=== PATIENT | male | born 1980 | race Caucasian/White ===

== ENCOUNTER 2016-04-23 15:10 | Emergency (ER) | payer MEDICAID ==
[~2016-04-23] VITALS: Ht 177.8 cm; Wt 86.4 kg
[2016-04-23 15:12] VITALS: TEMP 97.8
[2016-04-23] MEDS ORDERED: ROXICODONE 55 MG/TAB PO (16:07)
[2016-04-23] MEDS ORDERED: CATAPRES-TTS 10.1 M1 TD (16:08)
[2016-04-23] MEDS ORDERED: DAZIDOX10 MG PO (16:08)
[2016-04-23] MEDS ORDERED: CATAPRES 0.1MG0.1 MG PO (16:09)
[2016-04-23 16:13] LABS: BASO # 0.1 (0.0-0.2); BASO % 0.9 % (0.0-2.0); EOS # 0.3 (0.0-0.7); EOS % 3.3 % (0-4.0); GRAN # 4.1 (1.4-6.5); HEMATOCRIT 44.9 % (42.0-52.0); LYMPH # 2.5 (1.2-3.4); LYMPH % 32.5 % (20.0-51.0); MEAN CELL VOLUME 84 fl (80.0-100.0); MEAN CORPUSCULAR HEMOGLOBIN 30 pg (27.0-31.0); MEAN CORPUSCULAR HGB CONC 36 g/dl (33.0-37.0); MEAN PLATELET VOLUME 9.2 fl (7.4-10.4); MONO # 0.7 (0.1-0.6); PLATELET COUNT 255 K/mm3 (130-400); RED BLOOD COUNT 5.36 M/mm3 (4.20-5.60); WHITE BLOOD COUNT 7.6 K/mm3 (4.8-10.8)
[2016-04-23 16:23] LABS: ADJUSTED CALCIUM 8.9 mg/dL (8.4-10.2); ALBUMIN 4.7 gm/dL (3.5-5.0); BILIRUBIN,TOTAL 1.4 mg/dL (0.0-1.0); CALCIUM 9.5 mg/dL (8.4-10.2); CREATININE, serum 0.86 mg/dL (0.66-1.25); POTASSIUM 3.8 mmol/L (3.4-5.0)
[2016-04-23 17:11] LABS: PH 6 (5-8); URINE APPEARANCE Clear; URINE BILIRUBIN Negative (NEGATIVE); URINE COLOR Yellow; URINE GLUCOSE Negative (NEGATIVE); URINE KETONE Negative (NEGATIVE); URINE UROBILINOGEN Negative (NEGATIVE)
[2016-04-23 17:12] LABS: URINE BLOOD Negative (NEGATIVE)
[2016-04-23 17:19] LABS: SQUAMOUS EPITHELIAL 0-2 /hpf; URINE RBC None Seen /hpf; URINE WBC None Seen /hpf
[2016-04-23 17:44] VITALS: BP 139/99; PULSE 94
== END 2016-04-23 17:47 | disposition home or self-care (01) ==
LOC: COL.ER 15:10
PROVIDERS: Family Medicine
DX: M54.89 Other dorsalgia (principal); I10 Essential (primary) hypertension
CPT/HCPCS: J2405; J7030

== ENCOUNTER → 2017-09-08 | Outpatient (CLI) | payer MEDICAID ==
[~2017-09-08] MED LIST: CATAPRES 0.1MG0.1 MG PO; CATAPRES-TTS 10.1 M1 TD; DAZIDOX10 MG PO; ROXICODONE 55 MG/TAB PO
== END ==
LOC: COL.RAD 11:07
DX: M47.817 Spondylosis without myelopathy or radiculopathy, lumbosacral region (principal); M51.37 Other intervertebral disc degeneration, lumbosacral region; M99.73 Connective tissue and disc stenosis of intervertebral foramina of lumbar region

== ENCOUNTER 2017-09-22 14:37 | Emergency (ER) | payer MEDICAID ==
[~2017-09-22] VITALS: Ht 177.8 cm; Wt 90.9 kg
[2017-09-22 14:43] VITALS: TEMP 98.6
[2017-09-22 15:45] LABS: BASO # 0.1 (0.0-0.2); BASO % 0.7 % (0.0-2.0); EOS # 0.3 (0.0-0.7); EOS % 2.9 % (0-4.0); GRAN # 6.3 (1.4-6.5); GRAN % 65.2 % (42.2-75.2); HEMOGLOBIN 16.9 g/dl (13.5-18.0); LYMPH % 20.9 % (20.0-51.0); MEAN CELL VOLUME 82 fl (80.0-100.0); MEAN CORPUSCULAR HEMOGLOBIN 30 pg (27.0-31.0); MEAN CORPUSCULAR HGB CONC 37 g/dl (33.0-37.0); MEAN PLATELET VOLUME 9.3 fl (7.4-10.4); MONO % 9.9 % (1.7-9.3); PLATELET COUNT 254 K/mm3 (130-400); RED BLOOD COUNT 5.59 M/mm3 (4.20-5.60)
[2017-09-22 15:58] LABS: ALANINE AMINOTRANSFERASE 92 U/L (21-72); ALBUMIN 4.6 gm/dL (3.5-5.0); ALKALINE PHOSPHATASE 104 U/L (50-136); ANION GAP 9 mmol/L (7-16); AST,SGOT 53 U/L (15-37); BILIRUBIN,TOTAL 0.9 mg/dL (0.0-1.0); BLOOD UREA NITROGEN 13 mg/dL (9-20); CALCIUM 10.1 mg/dL (8.4-10.2); CARBON DIOXIDE 29 mmol/L (22-30); CHLORIDE 100 mmol/L (98-107); CREATININE, serum 1.08 mg/dL (0.66-1.25); GLUCOSE 80 mg/dL (74-106); POTASSIUM 4.5 mmol/L (3.4-5.0); SODIUM 137 mmol/L (137-145); TOTAL PROTEIN 8.7 gm/dL (6.4-8.2)
[2017-09-22 16:17] LABS: TROPONIN-I < 0.012 ng/mL (0.000-0.034)
[2017-09-22] MEDS ORDERED: PROAIR HFA0.09 MG/AC IH (17:42)
[2017-09-22] MEDS ORDERED: ZITHROMAX Z PA250 MG PO (17:42)
[2017-09-22 17:49] VITALS: BP 130/90; PULSE 124
== END 2017-09-22 18:08 | disposition home or self-care (01) ==
LOC: COL.ER 14:37
PROVIDERS: Emergency Medicine
DX: J45.909 Unspecified asthma, uncomplicated (principal); J20.9 Acute bronchitis, unspecified; I10 Essential (primary) hypertension; I12.9 Hypertensive chronic kidney disease with stage 1 through stage 4 chronic kidney disease, or unspecified chronic kidney disease; N18.9 Chronic kidney disease, unspecified
CPT/HCPCS: J7030

== ENCOUNTER 2017-10-18 18:30 | Emergency (ER) | payer MEDICAID ==
[~2017-10-18] VITALS: Ht 177.8 cm; Wt 93.2 kg
[~2017-10-18 18:30] MED LIST changes: +PROAIR HFA0.09 MG/AC IH; +ZITHROMAX Z PA250 MG PO
[2017-10-18 18:46] VITALS: BP 172/111; TEMP 97.9
[2017-10-18 19:23] LABS: BASO # 0.1 (0.0-0.2); BASO % 0.8 % (0.0-2.0); EOS # 0.5 (0.0-0.7); EOS % 5.9 % (0-4.0); GRAN # 4.3 (1.4-6.5); GRAN % 50.4 % (42.2-75.2); HEMATOCRIT 44.8 % (42.0-52.0); LYMPH # 2.6 (1.2-3.4); LYMPH % 30.7 % (20.0-51.0); MEAN CELL VOLUME 85 fl (80.0-100.0); MEAN CORPUSCULAR HEMOGLOBIN 31 pg (27.0-31.0); MEAN CORPUSCULAR HGB CONC 36 g/dl (33.0-37.0); MEAN PLATELET VOLUME 9.3 fl (7.4-10.4); MONO % 11.7 % (1.7-9.3); PLATELET COUNT 256 K/mm3 (130-400); RED BLOOD COUNT 5.25 M/mm3 (4.20-5.60); REDCELL DISTRIBUTION WIDTH-CV 12.5 % (11.5-14.5)
[2017-10-18 19:28] LABS: PROTHROMBIN TIME 10.8 SECONDS (9.7-12.8)
[2017-10-18 19:32] LABS: ALANINE AMINOTRANSFERASE 110 U/L (21-72); ALBUMIN 4.4 gm/dL (3.5-5.0); ALKALINE PHOSPHATASE 98 U/L (50-136); ANION GAP 13 mmol/L (7-16); AST,SGOT 65 U/L (15-37); BILIRUBIN,TOTAL 0.7 mg/dL (0.0-1.0); BLOOD UREA NITROGEN 13 mg/dL (9-20); CALCIUM 8.9 mg/dL (8.4-10.2); CARBON DIOXIDE 26 mmol/L (22-30); CHLORIDE 101 mmol/L (98-107); CREATININE, serum 1.03 mg/dL (0.66-1.25); GLUCOSE 125 mg/dL (74-106); POTASSIUM 3.9 mmol/L (3.4-5.0); SODIUM 139 mmol/L (137-145); TOTAL PROTEIN 7.6 gm/dL (6.4-8.2)
[2017-10-18 19:34] LABS: D-DIMER < 200.00 ng/mLDDu (200-230)
[2017-10-18 19:46] LABS: TROPONIN-I < 0.012 ng/mL (0.000-0.034)
[2017-10-18] MEDS ORDERED: PROAIR HFA0.09 MG/AC IH (23:20)
[2017-10-18] MEDS ORDERED: PREDNISONE20 MG PO (23:20)
[2017-10-18] MEDS ORDERED: ZITHROMAX500 M2 PO (23:20)
[2017-10-18 23:53] VITALS: PULSE 120
== END 2017-10-18 23:55 | disposition home or self-care (01) ==
LOC: COL.ER 18:30
PROVIDERS: Emergency Medicine
DX: J45.909 Unspecified asthma, uncomplicated (principal); I10 Essential (primary) hypertension; G89.29 Other chronic pain; Z77.22 Contact with and (suspected) exposure to environmental tobacco smoke (acute) (chronic); Z79.891 Long term (current) use of opiate analgesic
CPT/HCPCS: J2930; J3105; J3475; J7030

== ENCOUNTER → 2017-10-22 | Outpatient (CLI) | payer MEDICAID ==
[~2017-10-22] MED LIST changes: +PREDNISONE20 MG PO; +ZITHROMAX500 M2 PO
== END ==
LOC: MHCPAIN 15:14
DX: G89.29 Other chronic pain (principal); M47.817 Spondylosis without myelopathy or radiculopathy, lumbosacral region; M54.16 Radiculopathy, lumbar region; M53.3 Sacrococcygeal disorders, not elsewhere classified
CPT/HCPCS: G0463

== ENCOUNTER → 2017-11-06 | Outpatient (CLI) | payer MEDICAID | LOC: MHCPAIN 09:40 | DX: M54.16 Radiculopathy, lumbar region (principal) | CPT/HCPCS: J1040; J2250; J3010; Q9967 ==

== ENCOUNTER → 2017-11-19 | Outpatient (CLI) | payer MEDICAID | LOC: MHCPAIN 13:30 | DX: G89.29 Other chronic pain (principal); M47.817 Spondylosis without myelopathy or radiculopathy, lumbosacral region; M54.16 Radiculopathy, lumbar region; M53.3 Sacrococcygeal disorders, not elsewhere classified | CPT/HCPCS: G0463 ==

== ENCOUNTER → 2017-12-01 | Outpatient (CLI) | payer MEDICAID | LOC: MHCPAIN 14:03 | DX: M47.817 Spondylosis without myelopathy or radiculopathy, lumbosacral region (principal); M54.16 Radiculopathy, lumbar region | CPT/HCPCS: J1100; J2250; J3010; Q9967 ==

== ENCOUNTER → 2018-04-02 | Outpatient (CLI) | payer OTHER ==
[2018-04-02 10:22] LABS: HEMATOCRIT 43.4 % (42.0-52.0); HEMOGLOBIN 15.6 g/dl (13.5-18.0); MEAN CELL VOLUME 84 fl (80.0-100.0); MEAN CORPUSCULAR HEMOGLOBIN 30 pg (27.0-31.0); MEAN CORPUSCULAR HGB CONC 36 g/dl (33.0-37.0); MEAN PLATELET VOLUME 9.3 fl (7.4-10.4); PLATELET COUNT 255 K/mm3 (130-400); RED BLOOD COUNT 5.15 M/mm3 (4.20-5.60); REDCELL DISTRIBUTION WIDTH-CV 11.9 % (11.5-14.5)
[2018-04-02 10:32] LABS: ALBUMIN 3.8 gm/dL (3.5-5.0); BILIRUBIN,TOTAL 0.9 mg/dL (0.0-1.0); CALCIUM 8.6 mg/dL (8.4-10.2); CREATININE, serum 0.77 mg/dL (0.66-1.25); POTASSIUM 4.3 mmol/L (3.4-5.0); TOTAL PROTEIN 6.6 gm/dL (6.4-8.2)
== END ==
LOC: COL.LAB 09:26 → COL.RAD 09:26
PROVIDERS: Urology
DX: K76.0 Fatty (change of) liver, not elsewhere classified (principal); M43.17 Spondylolisthesis, lumbosacral region; M47.817 Spondylosis without myelopathy or radiculopathy, lumbosacral region; S35.41 Laceration of renal blood vessel
CPT/HCPCS: Q9967

== ENCOUNTER → 2019-03-24 | Outpatient (CLI) | payer MEDICAID, OTHER ==
[~2019-03-24] MED LIST changes: +CRUTCHES MC; +MINOXIDIL 2.5 PO
== END ==
LOC: MHCPAIN 08:04
DX: M47.817 Spondylosis without myelopathy or radiculopathy, lumbosacral region (principal); M54.16 Radiculopathy, lumbar region
CPT/HCPCS: G0463

== ENCOUNTER 2019-05-03 09:32 | Emergency (ER) | payer MEDICAID ==
[~2019-05-03] VITALS: Ht 177.8 cm; Wt 90.9 kg
[~2019-05-03 09:32] MED LIST changes: -CRUTCHES MC; -MINOXIDIL 2.5 PO
[2019-05-03 09:40] VITALS: BP 134/94; PULSE 86; TEMP 98
[2019-05-03] MEDS ORDERED: MINOXIDIL 2.5 PO (09:52)
[2019-05-03] MEDS ORDERED: CRUTCHES MC (13:59)
== END 2019-05-03 10:44 | disposition home or self-care (01) ==
LOC: COL.ER 09:32
DX: S93.601A Unspecified sprain of right foot, initial encounter (principal); W00.0XXA Fall on same level due to ice and snow, initial encounter

== ENCOUNTER → 2020-04-20 | Outpatient (CLI) | payer MEDICAID ==
[~2020-04-20] MED LIST changes: +CRUTCHES MC; +MINOXIDIL 2.5 PO; +ZOLOFT 25MG25 MG PO
[2020-04-20 11:37] LABS: HEMATOCRIT 44.8 % (42.0-52.0); MEAN CELL VOLUME 84 fl (80.0-100.0); MEAN CORPUSCULAR HEMOGLOBIN 30 pg (27.0-31.0); MEAN CORPUSCULAR HGB CONC 36 g/dl (33.0-37.0); MEAN PLATELET VOLUME 9.1 fl (7.4-10.4); PLATELET COUNT 307 K/mm3 (130-400); RED BLOOD COUNT 5.31 M/mm3 (4.20-5.60); REDCELL DISTRIBUTION WIDTH-CV 12.1 % (11.5-14.5)
[2020-04-20 12:00] LABS: ALBUMIN 4.8 gm/dL (3.5-5.0); BILIRUBIN,TOTAL 0.7 mg/dL (0.0-1.0); CALCIUM 9.1 mg/dL (8.4-10.2); CREATININE, serum 0.81 (0.66-1.25); POTASSIUM 4.3 mmol/L (3.4-5.0); TOTAL PROTEIN 7.8 gm/dL (6.4-8.2)
[2020-04-20 12:13] LABS: COLLECTION METHOD CLEAN CATCH
[2020-04-20 12:18] LABS: PH 5 (5-8); SQUAMOUS EPITHELIAL None Seen /hpf; URINE APPEARANCE Clear; URINE BACTERIA None Seen /hpf; URINE BILIRUBIN Negative (NEGATIVE); URINE BLOOD Negative (NEGATIVE); URINE COLOR Colorless; URINE GLUCOSE Negative (NEGATIVE); URINE KETONE Negative (NEGATIVE); URINE LEUKOCYTE ESTERASE Negative (NEGATIVE); URINE NITRATE Negative (NEGATIVE); URINE PROTEIN(semi-quant) Negative (NEGATIVE); URINE RBC 0-2 /hpf; URINE UROBILINOGEN Negative (NEGATIVE); URINE WBC 0-2 /hpf
== END ==
LOC: COL.LAB 10:46
DX: I10 Essential (primary) hypertension (principal)

== ENCOUNTER 2020-04-25 16:17 | Emergency (ER) | payer MEDICAID ==
[~2020-04-25] VITALS: Ht 175.3 cm; Wt 81.8 kg
[~2020-04-25 16:17] MED LIST changes: -ZOLOFT 25MG25 MG PO
[2020-04-25 16:27] VITALS: TEMP 97.6
[2020-04-25] MEDS ORDERED: ZOLOFT 25MG25 MG PO (16:36)
[2020-04-25 16:48] LABS: BASO # 0.1 (0.0-0.2); BASO % 0.7 % (0.0-2.0); EOS # 0.2 (0.0-0.7); EOS % 1.7 % (0-4.0); GRAN % 58.2 % (42.2-75.2); HEMATOCRIT 42.3 % (42.0-52.0); LYMPH # 2.8 (1.2-3.4); LYMPH % 32.2 % (20.0-51.0); MEAN CELL VOLUME 85 fl (80.0-100.0); MEAN CORPUSCULAR HEMOGLOBIN 30 pg (27.0-31.0); MEAN CORPUSCULAR HGB CONC 36 g/dl (33.0-37.0); MEAN PLATELET VOLUME 9.3 fl (7.4-10.4); MONO # 0.6 (0.1-0.6); PLATELET COUNT 262 K/mm3 (130-400); RED BLOOD COUNT 4.99 M/mm3 (4.20-5.60); REDCELL DISTRIBUTION WIDTH-CV 12.1 % (11.5-14.5)
[2020-04-25 17:00] LABS: COLLECTION METHOD CLEAN CATCH
[2020-04-25 17:05] LABS: ALANINE AMINOTRANSFERASE 66 U/L (4-49); ALBUMIN 4.5 gm/dL (3.5-5.0); ALKALINE PHOSPHATASE 95 U/L (50-136); ANION GAP 10 mmol/L (7-16); AST,SGOT 48 U/L (15-37); BILIRUBIN,TOTAL 0.5 mg/dL (0.0-1.0); BLOOD UREA NITROGEN 16 mg/dL (9-20); CALCIUM 9.4 mg/dL (8.4-10.2); CARBON DIOXIDE 28 mmol/L (22-30); CHLORIDE 98 mmol/L (98-107); GLUCOSE 138 mg/dL (74-106); SODIUM 135 mmol/L (137-145); TOTAL PROTEIN 7.2 gm/dL (6.4-8.2)
[2020-04-25 17:06] LABS: PH 6 (5-8); SQUAMOUS EPITHELIAL None Seen /hpf; URINE APPEARANCE Clear; URINE BACTERIA None Seen /hpf; URINE BILIRUBIN Negative (NEGATIVE); URINE BLOOD Negative (NEGATIVE); URINE COLOR Straw; URINE GLUCOSE Negative (NEGATIVE); URINE KETONE Negative (NEGATIVE); URINE LEUKOCYTE ESTERASE Negative (NEGATIVE); URINE NITRATE Negative (NEGATIVE); URINE PROTEIN(semi-quant) Negative (NEGATIVE); URINE RBC None Seen /hpf; URINE UROBILINOGEN Negative (NEGATIVE); URINE WBC None Seen /hpf
[2020-04-25 17:09] LABS: ALCOHOL(ethanol),MEDICAL < 10 mg/dL
[2020-04-25 17:15] LABS: PROTHROMBIN TIME 10.8 SECONDS (9.7-12.8)
[2020-04-25 17:17] LABS: TROPONIN-I < 0.012 ng/mL (0.000-0.035)
[2020-04-25 17:20] LABS: TRICYCLIC ANTIDEPRESS URINE NEGATIVE
[2020-04-25 18:38] VITALS: BP 138/90; PULSE 79
== END 2020-04-25 18:38 | disposition home or self-care (01) ==
LOC: COL.ER 16:17
PROVIDERS: Nurse Practitioner Primary Care
DX: R51.9 Headache, unspecified (principal); I10 Essential (primary) hypertension; G89.29 Other chronic pain; Z88.0 Allergy status to penicillin; Z88.6 Allergy status to analgesic agent; Z88.1 Allergy status to other antibiotic agents; Z88.8 Allergy status to other drugs, medicaments and biological substances
CPT/HCPCS: J1200; J1885

== ENCOUNTER → 2020-06-14 | Outpatient (CLI) | payer MEDICAID ==
[~2020-06-14] MED LIST changes: +ZOLOFT 25MG25 MG PO
[2020-06-14 13:53] LABS: BASO # 0.1 (0.0-0.2); BASO % 1.1 % (0.0-2.0); EOS # 0.2 (0.0-0.7); EOS % 2.7 % (0-4.0); GRAN # 3.9 (1.4-6.5); GRAN % 51.5 % (42.2-75.2); HEMATOCRIT 46.3 % (42.0-52.0); HEMOGLOBIN 16.3 g/dl (13.5-18.0); LYMPH # 2.8 (1.2-3.4); MEAN CELL VOLUME 86 fl (80.0-100.0); MEAN CORPUSCULAR HEMOGLOBIN 30 pg (27.0-31.0); MEAN CORPUSCULAR HGB CONC 35 g/dl (33.0-37.0); MONO # 0.6 (0.1-0.6); MONO % 7.6 % (1.7-9.3); PLATELET COUNT 296 K/mm3 (130-400); RED BLOOD COUNT 5.37 M/mm3 (4.20-5.60); REDCELL DISTRIBUTION WIDTH-CV 11.9 % (11.5-14.5)
[2020-06-16 14:42] LABS: ANGIOTENSIN CONVERTING ENZYME 42 U/L (16 - 85)
== END ==
LOC: COL.LAB 13:26
PROVIDERS: Internal Medicine Pulmonary Disease
DX: R06.02 Shortness of breath (principal)

== ENCOUNTER → 2020-07-19 | Outpatient (CLI) | payer MEDICAID | LOC: COL.PUL 09:30 | DX: R06.02 Shortness of breath (principal) | CPT/HCPCS: J7674 ==

== ENCOUNTER → 2020-08-02 | Outpatient (CLI) | payer MEDICAID | LOC: MHCPAIN 08:27 | DX: M47.817 Spondylosis without myelopathy or radiculopathy, lumbosacral region (principal); M54.16 Radiculopathy, lumbar region; M53.3 Sacrococcygeal disorders, not elsewhere classified; G89.29 Other chronic pain | CPT/HCPCS: G0463 ==

== ENCOUNTER 2020-08-10 15:46 | Emergency (ER) | payer MEDICAID ==
[~2020-08-10] VITALS: Ht 175.3 cm; Wt 81.8 kg
[2020-08-10 15:49] VITALS: TEMP 97.3
[2020-08-10 16:39] LABS: BASO # 0.1 (0.0-0.2); BASO % 0.9 % (0.0-2.0); EOS % 0.5 % (0-4.0); GRAN # 6.4 (1.4-6.5); GRAN % 82.5 % (42.2-75.2); HEMATOCRIT 46.4 % (42.0-52.0); HEMOGLOBIN 16.5 g/dl (13.5-18.0); LYMPH # 1.1 (1.2-3.4); LYMPH % 13.8 % (20.0-51.0); MEAN CELL VOLUME 85 fl (80.0-100.0); MEAN CORPUSCULAR HEMOGLOBIN 30 pg (27.0-31.0); MEAN CORPUSCULAR HGB CONC 36 g/dl (33.0-37.0); MEAN PLATELET VOLUME 9.7 fl (7.4-10.4); MONO # 0.2 (0.1-0.6); MONO % 1.9 % (1.7-9.3); PLATELET COUNT 285 K/mm3 (130-400); RED BLOOD COUNT 5.46 M/mm3 (4.20-5.60); REDCELL DISTRIBUTION WIDTH-CV 11.8 % (11.5-14.5)
[2020-08-10 16:45] LABS: ALANINE AMINOTRANSFERASE 58 U/L (4-49); ALBUMIN 4.8 gm/dL (3.5-5.0); ALKALINE PHOSPHATASE 97 U/L (50-136); ANION GAP 7 mmol/L (7-16); AST,SGOT 50 U/L (15-37); BILIRUBIN,TOTAL 0.7 mg/dL (0.0-1.0); BLOOD UREA NITROGEN 11 mg/dL (9-20); CALCIUM 9.7 mg/dL (8.4-10.2); CARBON DIOXIDE 31 mmol/L (22-30); CHLORIDE 98 mmol/L (98-107); CREATININE, serum 0.71 (0.66-1.25); GLUCOSE 104 mg/dL (74-106); SODIUM 136 mmol/L (137-145); TOTAL PROTEIN 8.5 gm/dL (6.4-8.2)
[2020-08-10 17:03] LABS: TROPONIN-I < 0.012 ng/mL (0.000-0.035)
[2020-08-10 17:19] VITALS: BP 138/90; PULSE 92
== END 2020-08-10 17:22 | disposition home or self-care (01) ==
LOC: COL.ER 15:46
PROVIDERS: Nurse Practitioner
DX: I10 Essential (primary) hypertension (principal); G89.29 Other chronic pain; M54.5 Low back pain; R51.9 Headache, unspecified; R10.84 Generalized abdominal pain; Z88.0 Allergy status to penicillin; Z88.1 Allergy status to other antibiotic agents; Z88.5 Allergy status to narcotic agent; Z88.6 Allergy status to analgesic agent

== ENCOUNTER → 2020-08-10 | Outpatient (CLI) | payer MEDICAID | LOC: MHCPAIN 13:23 | DX: M47.817 Spondylosis without myelopathy or radiculopathy, lumbosacral region (principal); M54.16 Radiculopathy, lumbar region | CPT/HCPCS: J1100; Q9967 ==

== ENCOUNTER 2023-12-01 10:38 | Emergency (ER) | payer SELFPAY ==
[~2023-12-01] VITALS: Ht 177.8 cm; Wt 81.8 kg
[2023-12-01 10:43] VITALS: BP 141/90; TEMP 98.1
[2023-12-01 12:32] VITALS: PULSE 88
== END 2023-12-01 12:32 | disposition home or self-care (01) ==
LOC: COL.ER 10:38
DX: S52.502A Unspecified fracture of the lower end of left radius, initial encounter for closed fracture (principal); W10.9XXA Fall (on) (from) unspecified stairs and steps, initial encounter; Y93.89 Activity, other specified